=== PATIENT | female | born 1995 | race Caucasian/White ===

== ENCOUNTER 2018-11-13 15:47 | Emergency (ER) | payer OTHER ==
[~2018-11-13] VITALS: Ht 170.2 cm; Wt 59.0 kg
[2018-11-13 16:28] LABS: ABSOLUTE BASOPHILS 0.1 thou/uL (0.0-0.2); ABSOLUTE LYMPHOCYTES 1.7 thou/uL (0.8-5.3); ABSOLUTE MONOCYTES 0.4 thou/uL (0.0-1.2); ABSOLUTE NEUTROPHILS 6.3 thou/uL (1.6-8.1); BASOPHILS 0.7 %; EOSINOPHILS 0.3 %; HEMATOCRIT 42.8 % (37.0-47.0); HEMOGLOBIN 14.6 gm/dL (12.0-15.0); MCH 28.8 pg (26.0-34.0); MCV 84.5 fL (80.0-100.0); MONOCYTES 4.8 %; MPV 7.8 fl. (7.2-11.1); NUCLEATED RBCS 0 /100WBC; PLATELET COUNT* 291 thou/uL (150-400); POLYS 74.2 %; RBC 5.06 mil/uL (4.20-5.00); RDW-CV 12.7 % (10.5-14.5); WBC 8.5 thou/uL (4.0-11.0)
[2018-11-13 16:35] LABS: ANION GAP 8 mmol/L (7-16); BUN 13 mg/dL (7-18); CALCIUM 9.4 mg/dL (8.5-10.1); CHLORIDE 101 mmol/L (98-107); CO2 28 mmol/L (21-32); CREATININE 0.7 mg/dL (0.6-1.3); GLUCOSE 110 mg/dL (70-99); POTASSIUM 3.4 mmol/L (3.5-5.1); SODIUM 137 mmol/L (136-145)
[2018-11-13 16:37] LABS: APTT 27.8 Seconds (25.0-31.3); PROTIME 10.2 Seconds (9.20-11.50)
[2018-11-13 16:53] LABS: ALBUMIN 4.2 g/dL (3.4-5.0); ALKALINE PHOSPHATASE 70 U/L (46-116); CK-MB MASS < 0.5 ng/mL (<0.5-3.6); LIPASE 119 U/L (73-393); MAGNESIUM 1.9 mg/dL (1.8-2.4); NT-PRO BRAIN NAT PEPTIDE 17 pg/mL (<300); SGOT 23 U/L (15-37); SGPT 31 U/L (30-65); TOTAL BILIRUBIN 0.3 mg/dL (<0.1-1.0); TOTAL PROTEIN 8.3 g/dL (6.4-8.2); TROPONIN-I LEVEL <0.06 ng/mL (<0.06)
[2018-11-13 17:16] VITALS: BP 122/80
--- NOTE | 2018-11-14 10:14 | EKG ---
[place] [address] ELECTROCARDIOGRAM REPORT Name: MARLINE BE Room: 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1995 Requested By: Fernando Hall Order Number: [id number] MD: Viet Peterson Measurements Intervals [place] Rate: 105 P: 70 UT: 176 QRS: 83 QRSD: 103 T: 12 QT: 337 QTc: 446 Interpretive Statements Sinus tachycardia Probable left atrial enlargement RSR' in V1 or V2, right VCD or RVH No previous ECG available for comparison Electronically Signed On 11-14-2018 10:14:36 [employer] by Viet Peterson [email or web address] <ELECTRONICALLY SIGNED> By: Viet Peterson MD, [facility] 11/14/18 [id number] Viet Peterson MD, [facility] /EPI
== END 2018-11-13 17:17 | disposition home or self-care (01) ==
LOC: M.ERS 15:47
PROVIDERS: Family Medicine
DX: R00.2 Palpitations (principal); R07.89 Other chest pain